=== PATIENT | female | born 1990 | race Caucasian/White ===

== ENCOUNTER 2016-11-04 20:52 | Emergency (ER) | payer BC ==
[~2016-11-04] VITALS: Ht 152.4 cm; Wt 62.1 kg
[2016-11-04 22:20] LABS: *URINE HCG, QUAL NEGATIVE (NEGATIVE)
[2016-11-05] MEDS ORDERED: PANTOPRAZOLE SODIUM 40 MG TABLET.DR PO ONE ×3 (00:14→00:15)
[2016-11-05] MEDS ORDERED: HYDROCODONE/APAP 5-325MG TABLET PO ONE (00:30)
--- NOTE | 2016-11-05 00:36 | NUR ---
Patient discharged to home in stable conditon. Written and verbal after care instructions given. Patient verbalizes understanding of instructions.
[2016-11-05] MEDS ORDERED: HYDROCODONE/APAP 5-325MG TABLET ONE (00:41)
== END 2016-11-05 00:38 | disposition home or self-care (01) ==
LOC: ER 20:52
DX: K20.9 Esophagitis, unspecified (principal); K95.09 Other complications of gastric band procedure
CPT/HCPCS: 70360; 74150; 84703; 99284; A4663